=== PATIENT | male | born 1975 | race Caucasian/White ===

== ENCOUNTER 2022-02-16 09:54 | Emergency (ER) | payer MEDICAID ==
[~2022-02-16] VITALS: Ht 165.1 cm; Wt 72.0 kg
[~2022-02-16 09:54] MED LIST: CYCL-1 PO
[2022-02-16 09:57] VITALS: BP 161/91
--- NOTE | 2022-02-16 10:00 | NUR ---
MADE AWARE OF PTS CC - NO ORDERS AT THIS TIME.
== END 2022-02-16 18:15 | disposition left against medical advice (07) ==
LOC: ER 09:55
DX: R20.0 Anesthesia of skin (principal); Z53.21 Procedure and treatment not carried out due to patient leaving prior to being seen by health care provider